=== PATIENT | male | born 1940 | race Caucasian/White ===

== ENCOUNTER → 2017-10-23 08:36 | Outpatient (CLI) | payer MEDICARE, OTHER, SELFPAY ==
[2017-10-23 10:19] LABS: AST(SGOT) 56 U/L (15-37); Alanine Aminotransfer ALT/SGPT 53 U/L (16-61); Albumin, Serum 4.1 g/dL (3.2-5.0); Alkaline Phosphatase 46 U/L (45-117); Bilirubin, Direct 0.12 mg/dL (0.00-0.30); Cholesterol 125 mg/dL (200); Globulin 3.1 g/dL (2.2-4.2); High Density Lipoprotein 33 mg/dL; Protein, Total 7.2 g/dL (6.4-8.2); Triglycerides 127 mg/dL; Very Low Density Lipoprotein 25 mg/dL (5-40)
== END ==
PROVIDERS: Family Provider Family Medicine; PCP Family Medicine; Visit Provider Internal Medicine Cardiovascular Disease
DX: E78.5 Hyperlipidemia, unspecified (principal); Z79.899 Other long term (current) drug therapy
CPT/HCPCS: 36415; 80061; 80076

== ENCOUNTER 2017-12-22 10:00 | Outpatient (RCR) | payer MEDICARE, OTHER, SELFPAY ==
--- NOTE | 2017-11-24 10:59 | HP.PTEVAL ---
Patient's Visit Information SPIKE MURILLO is a 77 year old M referred to Physical Therapy by Rogers Blake with a diagnosis of muscle stiffness. Date of Evaluation: 11/24/17 Physical Therapist: Nury Friedman - Visit Plan Frequency: 2x /Week Duration: 3 Weeks Plan: 2X/ week for 3 weeks to increase LE and trunk flexability through stretching and foam rollingetc. Then add I H&W strengthening program once his stiffness lessens as pt will be looking into a [employer] membership - Subjective Subjective: Pt reports that he has been way too sedentary and now he has aches in knees and hips and the worst is in the L hip and has hard time crossing L leg. He is concerned with the stiffness and needed more ext in the joints and strength and the second time is [facility] specialist wellness. He is part of the wellness program at the [facility]. He will contact insurance company to see if qualifies for [employer]. He does not feel weak. He sometimes he has trouble with the stairs. His symptoms are very episodic. He has not had any x-rays. Getting up and down from the chair is not as easy as it used to be. - Objective Gait: Walks with decrease stance time on the L, WBOS, lumbar spine shifted away from L hips. Trunk AROM: flexion 50%, ext 50%, SB B 50%. He is able to sit to stand without using his UE's. LE MMT: hip flex B, knee flex B, Knee ext B 5/5B hip abd and hip ext 5/5. Tight gastroc B, tight HS B, LTR tight B, L piriformis tighter than R, tight ER of B hips, tight B hip flexor. Pt got a cramp in his L HS and calf during stretching of his opposite leg. He walked it off and we rolled his HS and calf and it released. - Goals Goal 1:: I HEP and H&W program Goal Time Frame: 4-6 Weeks Goal 2:: Decrease feeling of stiffness in his LE's especially L hip and leg by 50% Goal Time Frame: 4-6 Weeks Goal 3:: Walk with more even gait pattern with B equal stance time Goal Time Frame: 4-6 Weeks - Rehabilitation Potential Rehabilitation Potential: Good - Anticipated Interventions Patient/Client Instruction: Educate patient on: Plan of Care For the Purpose of:: To increase ROM, To improve nutrient delivery to tissue, To improve muscle performance and motor function, To improve ability to perform ADL's, To increase tolerance to activity/condition/position, To improve gait and locomotor functions, To improve health of tissue, To decrease soft tissue restriction, To increase flexibility/ROM Therapeutic Exercise to Include: Strength training, Flexibilty training, Gait and locomotor training, Passive ROM, Active ROM For the Purpose of:: To increase ROM, To improve nutrient delivery to tissue, To improve muscle performance and motor function, To improve health of tissue, To decrease soft tissue restriction, To increase flexibility/ROM, To improve health and function Manual Therapy Techniques to Include: Mobilization, Passive ROM, Soft tissue mobilization For the Purpose of:: To increase ROM, To improve nutrient delivery to tissue, To improve muscle performance and motor function, To increase tolerance to activity/condition/position, To improve performance and independence with ADL's, To decrease soft tissue restriction, To increase flexibility/ROM Thank you for the opportunity to evaluate your patient. For Medicare and Medicare HMO plans, please review the plan of care and approve it. It will need to be FAXED BACK to us at [phone] for Medicare purposes. Please let me know if there are questions or concerns regarding this plan of care. Physician Signature: Date:
--- NOTE | 2017-12-22 11:08 | HP.PTDCSUM ---
HP - PT D/C Summary It has been my pleasure to treat SPIKE MURILLO under orders from Rogers Blake, for the diagnosis of muscle stiffness for a total of 7 visit(s). Discharge Date: 12/22/17 Please see the following information for a summary of their discharge status. - Subjective Subjective: Pt reports that he is feeling less stiff. Pt wants to join the program here - Pain LB Pain Intensity (Out of 10): 0 - Overall Improvement % Improvement: 60 - Objective Objective/Function: Pt feels I with health and wellness program. GAIT: PT HAS even stance time but def does not have the push off on the L nor does he have the gastroc muscle definition on the L either...encouraged the pt to do heel and toe raises often. - Goals Goal 1:: I HEP and H&W program Goal Progress: Goal Met Goal 2:: Decrease feeling of stiffness in his LE's especially L hip and leg by 50% Goal Progress: Goal Met Goal 3:: Walk with more even gait pattern with B equal stance time - Plan Plan: DC PT to health and wellness program - D/C Information Discharge Comments: DC PT to Health and Wellness program If there are questions or concerns regarding this patient's physical therapy, please feel free to call me at [phone]. Thank you for the referral of this patient. Sincerely, Nury Friedman
== END 2017-12-22 19:00 | disposition home or self-care (01) ==
LOC: PT 10:00
PROVIDERS: Family Provider Family Medicine; PCP Family Medicine; Visit Provider Family Medicine
DX: M25.60 Stiffness of unspecified joint, not elsewhere classified (principal)
CPT/HCPCS: 97110; 97161; 97530

== ENCOUNTER → 2018-04-23 07:52 | Outpatient (CLI) | payer MEDICARE, OTHER, SELFPAY ==
[2018-04-23 08:52] LABS: Microalbumin,Random Urine 13.4 mg/L (NO RANGE EST.); Microalbumin:Creatinine Ratio 7.8 mg/g CRE (<30 mg/g CRE)
[2018-04-23 09:02] LABS: AST(SGOT) 69 U/L (15-37); Alanine Aminotransfer ALT/SGPT 87 U/L (16-61); Albumin, Serum 4.2 g/dL (3.2-5.0); Alkaline Phosphatase 40 U/L (45-117); Bilirubin, Direct 0.25 mg/dL (0.00-0.30); Cholesterol 87 mg/dL (200); Globulin 2.7 g/dL (2.2-4.2); High Density Lipoprotein 44 mg/dL; Protein, Total 6.9 g/dL (6.4-8.2); Triglycerides 63 mg/dL; Very Low Density Lipoprotein 13 mg/dL (5-40)
[2018-04-23 09:08] LABS: Anion Gap 7 (5-15); BUN 16 mg/dL (7-18); BUN/Creat Ratio 13.1 RATIO (10-20); Calcium,Total 8.9 mg/dL (8.5-10.1); Chloride 106 mmol/L (98-107); Creatinine, Serum 1.22 mg/dL (0.70-1.30); EST Glomerular Filtration Rate 61 mL/min (>60); Est Glom Filt Rate - Afr Amer 74 mL/min (>60); Glucose 85 mg/dL (74-106); Potassium 3.9 mmol/L (3.5-5.1); Sodium Level 142 mmol/L (136-145)
== END ==
PROVIDERS: Family Provider Family Medicine; PCP Family Medicine; Referring Provider Internal Medicine Cardiovascular Disease; Visit Provider Internal Medicine Cardiovascular Disease
DX: E78.5 Hyperlipidemia, unspecified (principal); Z79.899 Other long term (current) drug therapy; I10 Essential (primary) hypertension
CPT/HCPCS: 36415; 80048; 80061; 80076; 82043; 82570

== ENCOUNTER → 2018-07-30 10:20 | Outpatient (CLI) | payer MEDICARE, OTHER, SELFPAY ==
[2018-07-30 09:27] VITALS: BMI 27.1
[2018-07-30 11:23] LABS: BUN 22 mg/dL (7-18); Creatinine, Serum 1.07 mg/dL (0.70-1.30); Glucose 97 mg/dL (74-106)
[2018-07-30 11:24] LABS: Anion Gap 7 (5-15); BUN/Creat Ratio 20.6 RATIO (10-20); Calcium,Total 9.1 mg/dL (8.5-10.1); Chloride 107 mmol/L (98-107); EST Glomerular Filtration Rate 71 mL/min (>60); Est Glom Filt Rate - Afr Amer 86 mL/min (>60); Potassium 4.9 mmol/L (3.5-5.1); Sodium Level 143 mmol/L (136-145)
[2018-07-30 11:39] LABS: BNP,B-Type NATRIURETIC PEPTIDE 848.2 pg/mL (0-100)
== END ==
PROVIDERS: Family Provider Family Medicine; PCP Family Medicine; Referring Provider Nurse Practitioner Family; Visit Provider Nurse Practitioner Family
DX: R06.09 Other forms of dyspnea (principal); I10 Essential (primary) hypertension; E78.5 Hyperlipidemia, unspecified; R60.0 Localized edema
CPT/HCPCS: 36415; 80048; 83880

== ENCOUNTER → 2018-08-06 12:31 | Outpatient (CLI) | payer MEDICARE, OTHER, SELFPAY ==
[2018-07-30 09:27] VITALS: BMI 27.1
--- NOTE | 2018-08-06 12:32 | ECHOD_ITS ---
Reason For Study: CHF Procedure This was a 2D Doppler, Color Flow transthoracic echocardiogram. Exam performed in department. Left Ventricle Normal LV size. The estimated ejection fraction is 40 %. Unable to assess diastolic dysfunction due to arrhythmia. There is mild to moderate global hypokinesis of the left ventricle. Right Ventricle Normal RV size. Normal systolic function. Atria The left atrium is moderately enlarged. The right atrium is mildly enlarged. Bubble contrast study negative for right to left interatrial shunt. Mitral Valve Normal mitral valve. Mild (1+) eccentric mitral valve insufficiency. Tricuspid Valve Normal tricuspid valve. Mild (1+) tricuspid valve insufficiency. Pulmonary artery systolic pressure is 33 mmHg. Aortic Valve Trisinus/trileaflet aortic valve. Pulmonic Valve Normal pulmonic valve. Great Vessels Normal aortic root. The pulmonary artery is normal size. Normal inferior vena cava. Pericardium/Pleural No pericardial effusion. Medication 22 gauge I.V. with prn adaptor inserted into right arm. Performed a rapid injection of agitated mix of 9 cc saline and 1cc air to assess for atrial septal defect. MMode/2D Measurements & Calculations LVIDd: 4.7 cm IVSd: 1.5 cm Ao root diam: 3.9 cm LVIDs: 3.3 cm LVPWd: 0.88 cm LA dimension: 4.4 cm FS: 29.1 % LAV(MOD-bp): 125.0 ml LA A4 area: 28.0 cm2 RA A4 area: 22.4 cm2 LAV(MOD-bp) Indexed: 60.8 ml/m2 LAV(MOD-sp2): 130.4 ml LAV(MOD-sp4): 104.0 ml Doppler Measurements & Calculations MV E max wilver: 78.7 cm/sec MV V2 max: 50.5 cm/sec Ao V2 max: 83.0 cm/sec MV max P.0 mmHg Ao max P.8 mmHg LV V1 max: 58.8 cm/sec MR max wilver: 511.7 cm/sec TR max wilver: 269.6 cm/sec LV V1 max P.4 mmHg MR max P.7 mmHg TR max P.2 mmHg MR mean wilver: 374.6 cm/sec MR mean P.3 mmHg MR VTI: 135.3 cm Interpretation Summary Normal LV size. The estimated ejection fraction is 40 %. Unable to assess diastolic dysfunction due to arrhythmia. There is mild to moderate global hypokinesis of the left ventricle. Mild (1+) eccentric mitral valve insufficiency. Mild (1+) tricuspid valve insufficiency. Pulmonary artery systolic pressure is 33 mmHg. Compared to previous study, the left ventricular systolic function has worsened.. Ordering Physician: Erwin Cook Referring Physician: Rogers Blake Performed By: Isaiah Arreola RCS
[2018-08-06 13:26] LABS: Anion Gap 10 (5-15); BUN 23 mg/dL (7-18); Calcium,Total 8.9 mg/dL (8.5-10.1); Chloride 101 mmol/L (98-107); Creatinine, Serum 1.15 mg/dL (0.70-1.30); EST Glomerular Filtration Rate 66 mL/min (>60); Est Glom Filt Rate - Afr Amer 80 mL/min (>60); Glucose 118 mg/dL (74-106); Potassium 4.2 mmol/L (3.5-5.1); Sodium Level 139 mmol/L (136-145)
== END ==
PROVIDERS: Family Provider Family Medicine; PCP Family Medicine; Referring Provider Nurse Practitioner Family; Visit Provider Nurse Practitioner Family
DX: R06.09 Other forms of dyspnea (principal); I10 Essential (primary) hypertension; E78.5 Hyperlipidemia, unspecified; R60.0 Localized edema; E66.9 Obesity, unspecified; I11.0 Hypertensive heart disease with heart failure; I50.33 Acute on chronic diastolic (congestive) heart failure
CPT/HCPCS: 36415; 80048; 93306; A4216

== ENCOUNTER → 2018-08-31 10:52 | Outpatient (CLI) | payer MEDICARE, OTHER, SELFPAY ==
[2018-08-10 11:23] VITALS: BMI 27.1
== END ==
PROVIDERS: Family Provider Family Medicine; PCP Family Medicine; Referring Provider Nurse Practitioner Family; Visit Provider Nurse Practitioner Family
DX: I42.9 Cardiomyopathy, unspecified (principal); I48.91 Unspecified atrial fibrillation
CPT/HCPCS: 93225; 93226

== ENCOUNTER → 2018-11-01 | Outpatient (CLI) | payer MEDICARE, OTHER, SELFPAY ==
[2018-09-07 11:33] VITALS: BMI 25.7
[2018-11-01 10:11] LABS: AST(SGOT) 33 U/L (15-37); Alanine Aminotransfer ALT/SGPT 40 U/L (16-61); Albumin, Serum 3.9 g/dL (3.2-5.0); Alkaline Phosphatase 104 U/L (45-117); Cholesterol 107 mg/dL (200); Globulin 2.8 g/dL (2.2-4.2); High Density Lipoprotein 49 mg/dL; Protein, Total 6.7 g/dL (6.4-8.2); Triglycerides 88 mg/dL; Very Low Density Lipoprotein 18 mg/dL (5-40)
== END | disposition home or self-care (01) ==
LOC: LAB 07:45
PROVIDERS: Family Provider Family Medicine; PCP Family Medicine; Referring Provider Internal Medicine Cardiovascular Disease; Visit Provider Internal Medicine Cardiovascular Disease
DX: E78.5 Hyperlipidemia, unspecified (principal)
CPT/HCPCS: 36415; 80061; 80076

== ENCOUNTER → 2019-05-24 | Outpatient (CLI) | payer MEDICARE, OTHER, SELFPAY ==
[2018-11-10 12:19] VITALS: BMI 26.7
[2019-05-24 08:47] LABS: AST(SGOT) 30 U/L (15-37); Alanine Aminotransfer ALT/SGPT 44 U/L (16-61); Albumin, Serum 3.9 g/dL (3.2-5.0); Alkaline Phosphatase 91 U/L (45-117); Bilirubin, Direct 0.19 mg/dL (0.00-0.30); Cholesterol 127 mg/dL (200); Globulin 3.5 g/dL (2.2-4.2); High Density Lipoprotein 49 mg/dL; Protein, Total 7.4 g/dL (6.4-8.2); Triglycerides 143 mg/dL; Very Low Density Lipoprotein 29 mg/dL (5-40)
== END | disposition home or self-care (01) ==
PROVIDERS: Family Provider Family Medicine; PCP Family Medicine; Referring Provider Nurse Practitioner Family; Visit Provider Nurse Practitioner Family
DX: E78.5 Hyperlipidemia, unspecified (principal)
CPT/HCPCS: 36415; 80061; 80076

== ENCOUNTER → 2019-06-13 11:59 | Outpatient (CLI) | payer MEDICARE, OTHER, SELFPAY ==
[2019-06-02 08:45] VITALS: BMI 27.5
[2019-06-13 14:07] LABS: Anion Gap 6 (5-15); BUN 16 mg/dL (7-18); BUN/Creat Ratio 13.8 RATIO (10-20); Calcium,Total 9.2 mg/dL (8.5-10.1); Chloride 104 mmol/L (98-107); Creatinine, Serum 1.16 mg/dL (0.70-1.30); EST Glomerular Filtration Rate 65 mL/min (>60); Est Glom Filt Rate - Afr Amer 79 mL/min (>60); Glucose 87 mg/dL (74-106); PSA,Total- Diagnostic 0.53 ng/mL (0.0-4.0); Sodium Level 141 mmol/L (136-145)
[2019-06-13 14:32] LABS: Microalbumin,Random Urine 5.3 mg/L (NO RANGE EST.)
== END ==
PROVIDERS: Family Provider Family Medicine; PCP Family Medicine; Referring Provider Family Medicine; Visit Provider Family Medicine
DX: I10 Essential (primary) hypertension (principal); Z85.46 Personal history of malignant neoplasm of prostate
CPT/HCPCS: 36415; 80048; 82043; 82570; 84153

== ENCOUNTER → 2019-06-27 12:54 | Outpatient (CLI) | payer MEDICARE, OTHER, SELFPAY ==
[2019-06-02 08:45] VITALS: BMI 27.5
--- NOTE | 2019-06-27 12:56 | ECHOD_ITS ---
Reason For Study: AFIB Procedure This was a 2D Doppler, Color Flow transthoracic echocardiogram. Exam performed in department. Left Ventricle Normal LV size. Left ventricular systolic function is normal. The estimated ejection fraction is 56 %. Unable to assess diastolic dysfunction due to arrhythmia. No regional wall motion abnormalities noted. Right Ventricle Normal RV size. Normal systolic function. Atria The left atrium is mildly enlarged. Normal right atrium. Mitral Valve Normal mitral valve. Mild (1+) eccentric mitral valve insufficiency. Tricuspid Valve Normal tricuspid valve. Mild (1+) tricuspid valve insufficiency. Pulmonary artery systolic pressure is 29 mmHg. Aortic Valve Trisinus/trileaflet aortic valve. Mild focal aortic valve calcification. Pulmonic Valve Normal pulmonic valve. Great Vessels Normal aortic root. The pulmonary artery is normal size. Normal inferior vena cava. Pericardium/Pleural No pericardial effusion. MMode/2D Measurements & Calculations LVIDd: 4.7 cm IVSd: 1.0 cm Ao root diam: 3.7 cm LVIDs: 3.1 cm LVPWd: 1.0 cm RVDd: 4.1 cm FS: 34.4 % LAV(MOD-bp): 72.7 ml LA A4 area: 21.8 cm2 LA dimension(2D): 4.7 cm LAV(MOD-bp) Indexed: 34.9 ml/m2 LAV(MOD-sp2): 76.4 ml LAV(MOD-sp4): 67.6 ml RA A4 area: 12.8 cm2 Doppler Measurements & Calculations Ao V2 max: 95.3 cm/sec LV V1 max: 78.3 cm/sec TR max wilver: 252.1 cm/sec Ao max P.7 mmHg LV V1 max P.5 mmHg TR max P.7 mmHg Interpretation Summary Normal LV size. Left ventricular systolic function is normal. The estimated ejection fraction is 56 %. Unable to assess diastolic dysfunction due to arrhythmia. The left atrium is mildly enlarged. Mild (1+) tricuspid valve insufficiency. Ordering Physician: Pablo Rivas Referring Physician: MIGUE WEINBERG Performed By: Mary Moran, RDCS, RVT
== END ==
PROVIDERS: Family Provider Family Medicine; PCP Family Medicine; Referring Provider Internal Medicine Cardiovascular Disease; Visit Provider Internal Medicine Cardiovascular Disease
DX: I48.20 Chronic atrial fibrillation, unspecified (principal)
CPT/HCPCS: 93306

== ENCOUNTER → 2019-12-02 09:51 | Outpatient (CLI) | payer MEDICARE, OTHER, SELFPAY ==
[2019-06-02 08:45] VITALS: BMI 27.5
[2019-12-02 10:58] LABS: AST(SGOT) 36 U/L (15-37); Alanine Aminotransfer ALT/SGPT 47 U/L (16-61); Alkaline Phosphatase 89 U/L (45-117); Anion Gap 6 (5-15); BUN 16 mg/dL (7-18); BUN/Creat Ratio 13.8 RATIO (10-20); Bilirubin, Direct 0.22 mg/dL (0.00-0.30); Calcium,Total 9.2 mg/dL (8.5-10.1); Chloride 104 mmol/L (98-107); Cholesterol 115 mg/dL (200); Creatinine, Serum 1.16 mg/dL (0.70-1.30); EST Glomerular Filtration Rate 65 mL/min (>60); Est Glom Filt Rate - Afr Amer 78 mL/min (>60); Globulin 3.2 g/dL (2.2-4.2); Glucose 95 mg/dL (74-106); High Density Lipoprotein 44 mg/dL; Potassium 4.1 mmol/L (3.5-5.1); Protein, Total 7.2 g/dL (6.4-8.2); Sodium Level 141 mmol/L (136-145); Triglycerides 106 mg/dL; Very Low Density Lipoprotein 21 mg/dL (5-40)
== END ==
PROVIDERS: PCP Family Medicine; Referring Provider Nurse Practitioner Family; Visit Provider Nurse Practitioner Family
DX: E78.00 Pure hypercholesterolemia, unspecified (principal); E78.5 Hyperlipidemia, unspecified; I10 Essential (primary) hypertension; Z85.46 Personal history of malignant neoplasm of prostate
CPT/HCPCS: 36415; 80048; 80061; 80076; 82043; 82570; 84153

== ENCOUNTER → 2020-11-26 07:02 | Outpatient (CLI) | payer MEDICARE, OTHER, SELFPAY ==
[2019-12-27 11:13] VITALS: BMI 26.2
[2020-11-26 07:31] LABS: Absolute Lymphocyte Count 1.53 X10^3/uL (0.83-4.51); Absolute Neutrophil Count 3.8 X10^3/uL (2.0-7.7); Basophil# 0.05 X10^3/uL; Basophil% 0.8 % (0-1); Eosinophil# 0.13 X10^3/uL; Eosinophils% 2.1 % (0-5); Hematocrit 44.4 % (40-54); Hemoglobin 13.8 g/dL (13.0-16.5); Lymphocyte # 1.53 X10^3/ul (0.83-4.51); Lymphocyte % 25.1 % (19-41); Mean Corp Hgb Conc 31.1 g/dL (32-36); Mean Corpuscular Hgb 30.3 pg (27.0-32.0); Mean Corpuscular Volume 97.4 fL (80-94); Mean Platelet Vol. 9.3 fl (6.2-12.0); Monocyte# 0.57 X10^3/uL; Monocyte% 9.3 % (0-10); NRBC Flagged by Analyzer 0 % (0-5); Neutrophil # 3.79 X10^3/uL (2.7-7.7); Neutrophil % 62.2 % (47-70); Platelet Count 226 K/mm3 (150-450); RBC Distribution Width CV 12.2 % (11.6-14.6); RBC Distribution Width SD 44.4 fl (35.1-43.9); Red Blood Count 4.56 M/mm3 (4.6-6.2); White Blood Count 6.1 K/mm3 (4.4-11.0)
[2020-11-26 07:51] LABS: Microalbumin,Random Urine 6.5 mg/L (NO RANGE EST.); Microalbumin:Creatinine Ratio 7.4 mg/g CRE (<30 mg/g CRE)
[2020-11-26 08:03] LABS: ALB/GLOB Ratio 1.1 RATIO (0.9-2.4); AST(SGOT) 31 U/L (15-37); Alanine Aminotransfer ALT/SGPT 38 U/L (16-61); Albumin, Serum 3.9 g/dL (3.2-5.0); Alkaline Phosphatase 81 U/L (45-117); Anion Gap 5 (5-15); BUN 18 mg/dL (7-18); BUN/Creat Ratio 17.8 RATIO (10-20); Bilirubin, Direct 0.17 mg/dL (0.00-0.30); Calcium,Total 8.8 mg/dL (8.5-10.1); Chloride 103 mmol/L (98-107); Cholesterol 165 mg/dL (200); Creatinine, Serum 1.01 mg/dL (0.70-1.30); EST Glomerular Filtration Rate 76 mL/min (>60); Est Glom Filt Rate - Afr Amer 92 mL/min (>60); Globulin 3.4 g/dL (2.2-4.2); Glucose 96 mg/dL (74-106); High Density Lipoprotein 49 mg/dL; PSA,Total- Diagnostic 0.67 ng/mL (0.0-4.0); Potassium 3.9 mmol/L (3.5-5.1); Protein, Total 7.3 g/dL (6.4-8.2); Sodium Level 138 mmol/L (136-145); Triglycerides 220 mg/dL; Very Low Density Lipoprotein 44 mg/dL (5-40)
== END ==
PROVIDERS: PCP Family Medicine; Referring Provider Family Medicine; Visit Provider Family Medicine
DX: I48.0 Paroxysmal atrial fibrillation (principal); I10 Essential (primary) hypertension; G47.30 Sleep apnea, unspecified; Z85.46 Personal history of malignant neoplasm of prostate
CPT/HCPCS: 36415; 80053; 80061; 82043; 82248; 82570; 84153; 85025

== ENCOUNTER → 2020-12-04 10:50 | Outpatient (CLI) | payer MEDICARE, OTHER, SELFPAY ==
[2019-12-27 11:13] VITALS: BMI 26.2
[2020-11-27 12:50] VITALS: BMI 29.0
--- NOTE | 2020-12-04 10:51 | ECHOD_ITS ---
Version 2 Reason For Study: Central Sleep Apnea Procedure This was a 2D Doppler, Color Flow transthoracic echocardiogram. Exam performed in department. Left Ventricle Normal LV size. Left ventricular systolic function is normal. The estimated ejection fraction is 53 %. No regional wall motion abnormalities noted. Right Ventricle Normal RV size. Normal systolic function. Atria The left atrium is moderately enlarged. Normal right atrium. Mitral Valve Normal mitral valve. Mild (1+) eccentric mitral valve insufficiency. Tricuspid Valve Normal tricuspid valve. Mild (1+) tricuspid valve insufficiency. Pulmonary artery systolic pressure is 30 mmHg. Aortic Valve Normal aortic valve. Trisinus/trileaflet aortic valve. Pulmonic Valve Normal pulmonic valve. Great Vessels Normal aortic root. The pulmonary artery is normal size. Normal inferior vena cava. Pericardium/Pleural No pericardial effusion. MMode/2D Measurements & Calculations LVIDd: 4.0 cm IVSd: 1.4 cm Ao root diam: 3.6 cm LVIDs: 2.8 cm LVPWd: 1.4 cm LA dimension: 4.9 cm RVDd: 4.2 cm FS: 30.7 % LAV(MOD-bp): 111.0 ml LA A4 area: 29.5 cm2 RA A4 area: 20.7 cm2 LAV(MOD-bp) Indexed: 52.1 ml/m2 LAV(MOD-sp2): 111.1 ml LAV(MOD-sp4): 101.6 ml Doppler Measurements & Calculations MV E max wilver: 69.9 cm/sec Ao V2 max: 86.2 cm/sec LV V1 max: 66.9 cm/sec Ao max P.0 mmHg LV V1 max P.8 mmHg MR max wilver: 462.0 cm/sec PA V2 max: 87.6 cm/sec TR max wilver: 256.0 cm/sec MR max P.4 mmHg TR max P.2 mmHg MR mean wilver: 360.3 cm/sec MR mean P.7 mmHg MR VTI: 168.9 cm ECHO/Echo Complete Interpretation Summary Normal LV size. Left ventricular systolic function is normal. The estimated ejection fraction is 53 %. Pulmonary artery systolic pressure is 30 mmHg. Mild (1+) eccentric mitral valve insufficiency. Compared to previous study, the left ventricular systolic function is the same. . Ordering Physician: Reymundo Rodriguez Referring Physician: Rogers Blake Performed By: Isaiah Arreola RCS
== END ==
PROVIDERS: PCP Family Medicine; Referring Provider Internal Medicine Pulmonary Disease; Visit Provider Internal Medicine Pulmonary Disease
DX: G47.31 Primary central sleep apnea (principal)
CPT/HCPCS: 93306

== ENCOUNTER → 2021-01-14 15:26 | Outpatient (CLI) | payer MEDICARE, OTHER, SELFPAY ==
[2020-11-27 12:50] VITALS: BMI 29.0
--- NOTE | 2021-01-14 15:28 | RAD_ITS ---
STUDY: X-RAY - RIGHT FOOT CLINICAL: Male, 80 years old. Midfoot pain. TECHNIQUE: 3 view(s) of the foot on 4 images. COMPARISON: None. FINDINGS: Generalized osteopenia. Normal visualized subtalar, talonavicular, calcaneocuboid, tarsal and tarsometatarsal articulations. Normal metatarsi. Mild arthrosis of the MTP and IP joints. The soft tissue structures are unremarkable. 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 Electronically Signed: Jair Henry MD at 14:51 EDT , Service support ,
== END ==
PROVIDERS: PCP Family Medicine; Referring Provider Family Medicine; Visit Provider Family Medicine
DX: S99.921S Unspecified injury of right foot, sequela (principal)
CPT/HCPCS: 73630

== ENCOUNTER → 2021-01-16 14:43 | Outpatient (CLI) | payer MEDICARE, OTHER, SELFPAY ==
[2020-11-27 12:50] VITALS: BMI 29.0
--- NOTE | 2021-01-16 15:10 | RAD_ITS ---
STUDY: X-RAY - RIGHT ANKLE REASON FOR EXAM: Male, 80 years old. Ankle injury on stairs. Pain. TECHNIQUE: 3 view(s) of the ankle. COMPARISON: None. FINDINGS: Generalized osteopenia. Nondisplaced oblique fracture of the distal fibula. Normal medial and lateral malleoli. Normal tibiotalar articulation and ankle mortise. Normal visualized talus and calcaneus. The visualized subtalar, talonavicular, calcaneocuboid and tarsal articulations are normal. The soft tissue structures are unremarkable. RAD/Ankle min 3 Views IMPRESSION: Osteopenia with nondisplaced oblique fracture of the distal fibula. Electronically Signed: Jair Henry MD at 10:52 EDT , Service support ,
== END ==
PROVIDERS: PCP Family Medicine; Referring Provider Family Medicine; Visit Provider Family Medicine
DX: S82.891A Other fracture of right lower leg, initial encounter for closed fracture (principal)
CPT/HCPCS: 73610

== ENCOUNTER → 2021-01-29 14:13 | Outpatient (CLI) | payer MEDICARE, OTHER, SELFPAY ==
[2020-11-27 12:50] VITALS: BMI 29.0
--- NOTE | 2021-01-29 14:17 | RAD_ITS ---
STUDY: X-RAY - RIGHT ANKLE REASON FOR EXAM: Male, 80 years old. PAIN TECHNIQUE: 3 view(s) of the ankle. COMPARISON: Comparison is made with prior examination dated 01/16/2021. FINDINGS: Nondisplaced oblique fracture of the distal fibula. Normal medial and lateral malleoli. Normal tibiotalar articulation and ankle mortise. Normal visualized talus and calcaneus. The visualized subtalar, talonavicular, calcaneocuboid and tarsal articulations are normal. Soft tissue swelling. RAD/Ankle min 3 Views IMPRESSION: Stable nondisplaced oblique fracture of the distal fibula. Electronically Signed: Mitul Powell MD at 13:29 EDT , Service support ,
--- NOTE | 2021-01-29 14:17 | RAD_ITS ---
STUDY: X-RAY - RIGHT FOOT CLINICAL: Male, 80 years old. PAIN IN RIGHT FOOT TECHNIQUE: 3 view(s) of the foot. COMPARISON: Comparison is made with prior study dated 01/14/2021. FINDINGS: Normal talus, calcaneus, and tarsal bones. Normal visualized subtalar, talonavicular, calcaneocuboid, tarsal and tarsometatarsal articulations. Normal metatarsi. There is degenerative arthrosis of the metatarsophalangeal joint of the hallux . Normal tibial and fibular sesamoid bones. Normal interphalangeal joint of the great toe. Normal phalanges of the great toe. Normal second through fifth metatarsophalangeal joints. Normal interphalangeal joints and phalanges of the lesser toes. The soft tissue structures are unremarkable. RAD/Foot min 3 Views IMPRESSION: Stable examination. No acute abnormality is seen. Electronically Signed: Mitul Powell MD at 13:30 EDT , Service support ,
== END ==
PROVIDERS: PCP Family Medicine; Referring Provider Family Medicine; Visit Provider Family Medicine
DX: M79.671 Pain in right foot (principal); S82.839A Other fracture of upper and lower end of unspecified fibula, initial encounter for closed fracture
CPT/HCPCS: 73610; 73630

== ENCOUNTER → 2021-02-14 11:16 | Outpatient (CLI) | payer MEDICARE, OTHER, SELFPAY ==
[2020-11-27 12:50] VITALS: BMI 29.0
--- NOTE | 2021-02-14 11:20 | RAD_ITS ---
STUDY: X-RAY - RIGHT ANKLE REASON FOR EXAM: Male, 80 years old. Right foot and ankle pain. Follow-up fracture. TECHNIQUE: 3 view(s) of the ankle. COMPARISON: 01/29/2021 FINDINGS: Stable osteopenia. Oblique nondisplaced fracture of the distal fibula, unchanged from prior study. The soft tissue structures are unremarkable. RAD/Ankle min 3 Views IMPRESSION: Stable osteopenia with distal fibular fracture, unchanged, with no complicating features. Electronically Signed: Jair Henry MD at 13:01 EDT , Service support ,
== END ==
PROVIDERS: PCP Family Medicine; Referring Provider Family Medicine; Visit Provider Family Medicine
DX: S82.891A Other fracture of right lower leg, initial encounter for closed fracture (principal)
CPT/HCPCS: 73610

== ENCOUNTER → 2021-02-27 11:21 | Outpatient (CLI) | payer MEDICARE, OTHER, SELFPAY ==
[2020-11-27 12:50] VITALS: BMI 29.0
--- NOTE | 2021-02-27 11:34 | RAD_ITS ---
STUDY: X-RAY - RIGHT ANKLE REASON FOR EXAM: Male, 80 years old. Right ankle injury 6 weeks ago. TECHNIQUE: 3 view(s) of the ankle. COMPARISON: Right ankle, 02/14/2021. FINDINGS: Normal visualized distal tibia and fibula. There is interval healing of the fibular fracture. Normal medial and lateral malleoli. Normal tibiotalar articulation and ankle mortise. Normal visualized talus and calcaneus. The visualized subtalar, talonavicular, calcaneocuboid and tarsal articulations are normal. The soft tissue structures are unremarkable. RAD/Ankle min 3 Views IMPRESSION: Normal x-ray examination of the ankle. Electronically Signed: Lucas Knott DO at 16:53 EDT Tel [phone], Service support ,
[2021-02-27 15:45] LABS: Absolute Lymphocyte Count 1.19 X10^3/uL (0.83-4.51); Absolute Neutrophil Count 5.7 X10^3/uL (2.0-7.7); Basophil# 0.07 X10^3/uL; Basophil% 0.9 % (0-1); Eosinophil# 0.13 X10^3/uL; Eosinophils% 1.7 % (0-5); Hematocrit 44.2 % (40-54); Hemoglobin 14.2 g/dL (13.0-16.5); Lymphocyte # 1.19 X10^3/ul (0.83-4.51); Lymphocyte % 15.3 % (19-41); Mean Corp Hgb Conc 32.1 g/dL (32-36); Mean Corpuscular Hgb 30.2 pg (27.0-32.0); Mean Platelet Vol. 9.6 fl (6.2-12.0); Monocyte# 0.62 X10^3/uL; NRBC Flagged by Analyzer 0 % (0-5); Neutrophil # 5.72 X10^3/uL (2.7-7.7); Neutrophil % 73.7 % (47-70); Platelet Count 328 K/mm3 (150-450); RBC Distribution Width CV 12.3 % (11.6-14.6); RBC Distribution Width SD 42.5 fl (35.1-43.9); White Blood Count 7.8 K/mm3 (4.4-11.0)
[2021-02-27 16:10] LABS: Vitamin D,25 Hydroxy 52.4 ng/mL
[2021-02-27 16:11] LABS: AST(SGOT) 27 U/L (15-37); Alanine Aminotransfer ALT/SGPT 47 U/L (16-61); Albumin, Serum 3.7 g/dL (3.2-5.0); Alkaline Phosphatase 111 U/L (45-117); Anion Gap 7 (5-15); BUN 14 mg/dL (7-18); BUN/Creat Ratio 16.7 RATIO (10-20); Chloride 104 mmol/L (98-107); Creatinine, Serum 0.84 mg/dL (0.70-1.30); EST Glomerular Filtration Rate 94 mL/min (>60); Est Glom Filt Rate - Afr Amer 113 mL/min (>60); Globulin 3.7 g/dL (2.2-4.2); Glucose 82 mg/dL (74-106); Protein, Total 7.4 g/dL (6.4-8.2); Sodium Level 139 mmol/L (136-145); Thyroid Stim Hormone (TSH) 3.14 uIU/mL (0.358-3.74)
[2021-02-28 08:04] LABS: PTHIN 43.6 pg/mL (18.4-80.1)
== END ==
PROVIDERS: PCP Family Medicine; Referring Provider Family Medicine; Visit Provider Family Medicine
DX: M85.871 Other specified disorders of bone density and structure, right ankle and foot (principal); S82.891A Other fracture of right lower leg, initial encounter for closed fracture; R20.2 Paresthesia of skin
CPT/HCPCS: 36415; 73610; 80053; 82306; 83970; 84443; 85025

== ENCOUNTER → 2021-03-14 09:28 | Outpatient (CLI) | payer MEDICARE, OTHER, SELFPAY ==
[2020-11-27 12:50] VITALS: BMI 29.0
--- NOTE | 2021-03-14 09:35 | BD_ITS ---
STUDY: DUAL ENERGY X-RAY ABSORPTIOMETRY / DXA REASON FOR EXAM: Male, 80 years old. M85.89. TECHNIQUE: Bone Mineral Density (BMD) measurements of lumbar spine and bilateral hips were obtained. COMPARISON: None. FINDINGS: Lumbar Spine (L1-L4): g/cm2 (1.411) / T-score (3.3) / Z-score (4.3) Findings are suggestive of normal bone density with a low fracture risk. Left Femur Total: g/cm2 (1.174) / T-score (0.9) / Z-score (1.9) Left Femoral Neck: g/cm2 (1.08) / T-score (1.1) / Z-score (2.6) Right Femur Total: g/cm2 (1.186) / T-score (1.0) / Z-score (2.0) Right Femoral Neck: g/cm2 (1.000) / T-score (0.5) / Z-score (2.0) BD/Dexa Bone Density Study IMPRESSION: The patient is considered as outlined below according to World Roger Organization (WHO) criteria with a fracture risk. There has been of bone density since the previous examination. Reference Information: The T-score is the number of standard deviations above or below the standard which is normal for young adults at their peak bone mineral density. The World Health Organization (WHO) interprets the T-scores as follows: Above -1 Normal bone density Between -1 and -2.5 Osteopenia Equal to / or below -2.5 Osteoporosis As a practical clinical guideline, osteopenia may be graded as follows: Mild -1 through -1.5 Moderate -1.6 through -2.0 Severe -2.1 through -2.4 The Z-score is the number of standard deviations above or below age-matched controls. A Z-score of less than -1.5 would be considered abnormal. References: 1. NIH Osteoporosis and Related Bone Diseases www osteo.org 2. International Society for Clinical Densitometry www iscd.org 3. National Osteoporosis Foundation www nof.org Electronically Signed: Mitul Powell MD at 15:36 EDT , Service support ,
== END ==
PROVIDERS: PCP Family Medicine; Referring Provider Family Medicine; Visit Provider Family Medicine
DX: M85.89 Other specified disorders of bone density and structure, multiple sites (principal); M85.879 Other specified disorders of bone density and structure, unspecified ankle and foot
CPT/HCPCS: 77080

== ENCOUNTER → 2021-12-27 | Outpatient (CLI) | payer MEDICARE, OTHER, SELFPAY ==
[2021-12-27 08:25] LABS: Cholesterol 129 mg/dL (200); High Density Lipoprotein 41 mg/dL; PSA,Total - Annual Screen 0.98 ng/mL (0.00-4.00); Thyroid Stim Hormone (TSH) 3.35 uIU/mL (0.358-3.74); Triglycerides 137 mg/dL; Very Low Density Lipoprotein 27 mg/dL (5-40)
== END | disposition home or self-care (01) ==
LOC: LAB 07:23
PROVIDERS: PCP Family Medicine; Referring Provider Family Medicine; Visit Provider Family Medicine
DX: E03.9 Hypothyroidism, unspecified (principal); Z12.5 Encounter for screening for malignant neoplasm of prostate
CPT/HCPCS: 36415; 80061; 84153; 84443; G0103